=== PATIENT | female | born 1940 | race Caucasian/White ===

== ENCOUNTER 2023-04-18 22:08 | Observation (INO) | payer MEDICARE ==
[2023-04-19] MEDS ORDERED: Acetaminophen 650 MG Suppository PR PRN (00:45)
[2023-04-19] MEDS ORDERED: Ondansetron PF 4 MG/2 ML Vial IVP PRN (00:45)
[2023-04-19] MEDS ORDERED: Acetaminophen 325 MG TAB PO PRN (00:45)
[2023-04-19] MEDS ORDERED: Ondansetron ODT 4 MG TAB PO PRN (00:45)
[2023-04-19] MEDS ORDERED: Glucagon 1 MG/ML KIT IM PRN (03:01)
[2023-04-19] MEDS ORDERED: Dextrose 50% Abboject 50 ML SYRINGE SLOW IVP PRN (03:01)
[2023-04-19] MEDS ORDERED: HumaLOG 300 UNITS/3 ML VIAL SC PRN ×2 (03:01)
[2023-04-19] MEDS ORDERED: Dextrose 5% in Water 1,000 ML IV PRN (03:01)
[2023-04-19] MEDS: Vancomycin (BATCH) 1.5 GM in Premix 1 BAG IVPB SCH (03:07)
[2023-04-19 06:10] VITALS: BMI 21.9
[2023-04-19 08:31] LABS: #Eosinphils 0.1 thou/uL (0.0-0.7); #Monocytes 0.3 thou/uL (0.11-0.59); #Neutrophils 4.3 thou/uL (1.40-6.50); %Basophils 0.4 % (0.0-1.0); %Eosinophils 2.1 % (0.0-10.0); %Lymphocytes 28.7 % (21.0-51.0); %Monocytes 4.7 % (0.0-10.0); Hemoglobin 10.3 g/dL (12.0-16.0); Mean Corpuscular HGB CONC 32.2 g/dL (32.0-36.0); Mean Corpuscular Hemoglobin 31.2 pg (27.0-31.0); Mean Platelet Volume 11.7 fL (7.4-10.4); RBC Distribution Width 13.6 % (11.5-14.5); White Blood Cell (WBC) Count 6.8 10x3/uL (4.8-10.8)
[2023-04-19 08:38] LABS: Platelet Count 113 10x3/uL (130-400)
[2023-04-19 08:46] LABS: Anion Gap 13 mmol/L (10-20); BUN (Urea Nitrogen) 13 mg/dL (9.8-20.1); Calc. Creatinine Clearance 57 mL/min (70-130); Calcium 8.7 mg/dL (7.8-10.44); Carbon Dioxide 23 mmol/L (23-31); Cardiac Risk 3.3 (Less than 4.5); Chloride 108 mmol/L (98-107); Cholesterol 114 mg/dl (< 200 Desired); Estimated GFR 78; Glucose 96 mg/dL (83-110); HDL Cholesterol 35 mg/dL (>60 Neg Risk); LDL Cholesterol, Calculated 36 mg/dL; Potassium 4.1 mmol/L (3.5-5.1); Sodium 140 mmol/L (136-145); Triglycerides 215 mg/dL (Less than 150)
[2023-04-19] MEDS ORDERED: Vancomycin (BATCH) 1.25 GM in Premix 1 BAG IVPB SCH (09:00)
[2023-04-19 09:01] LABS: Hemoglobin A1c 5.5 % (4.0-6.0)
[2023-04-19] MEDS: Sodium Chloride 0.9% 1,000 ML IV SCH (10:21)
[2023-04-19] MEDS: HYDROcodone/Acetaminophen 10/325 mg Tablet PO PRN (18:45)
[2023-04-19] MEDS: Cyanocobalamin (Vitamin B-12) 1,000 MCG TAB PO SCH (20:52)
[2023-04-19] MEDS: Atorvastatin Calcium 40 MG TAB PO SCH (20:52)
[2023-04-19] MEDS: rOPINIRole HCl 2 MG TAB PO SCH (20:52)
[2023-04-19] MEDS: Venlafaxine HCl XR 150 MG CAP PO SCH (20:52)
[2023-04-20] MEDS: Levothyroxine Sodium 75 MCG TAB PO SCH (05:42)
[2023-04-20 08:57] LABS: Anion Gap 9 mmol/L (10-20); BUN (Urea Nitrogen) 9 mg/dL (9.8-20.1); Calc. Creatinine Clearance 62 mL/min (70-130); Carbon Dioxide 27 mmol/L (23-31); Chloride 108 mmol/L (98-107); Estimated GFR 86; Glucose 84 mg/dL (83-110); Magnesium 1.5 mg/dL (1.6-2.6); Phosphorus 3.9 mg/dL (2.3-4.7); Potassium 4.1 mmol/L (3.5-5.1); Sodium 140 mmol/L (136-145)
[2023-04-20] MEDS: Ergocalciferol 1.25 MG(50,000 UNITS) CAP PO SCH (12:08)
[2023-04-20] MEDS: Magnesium 2 GM/50 ML(in water) 2 GM in Premix 1 BAG IVPB SCH (12:08)
[2023-04-20 14:01] VITALS: BP 116/62; TEMP 98.2
== END 2023-04-20 15:32 | disposition home or self-care (01) ==
LOC: ERS 22:08 → ERHOLD 04-19 00:22 → 2SE 04-19 04:36
PROVIDERS: ADMIT Student in an Organized Health Care Education/Training Program; ATTEND Internal Medicine
DX: S06.5X0A Traumatic subdural hemorrhage without loss of consciousness, initial encounter (principal); S01.01XA Laceration without foreign body of scalp, initial encounter; I10 Essential (primary) hypertension; F03.90 Unspecified dementia, unspecified severity, without behavioral disturbance, psychotic disturbance, mood disturbance, and anxiety; E11.9 Type 2 diabetes mellitus without complications; E78.5 Hyperlipidemia, unspecified; E03.9 Hypothyroidism, unspecified; G62.9 Polyneuropathy, unspecified; G25.81 Restless legs syndrome; Z96.652 Presence of left artificial knee joint; Z98.49 Cataract extraction status, unspecified eye; Z90.710 Acquired absence of both cervix and uterus; Z90.49 Acquired absence of other specified parts of digestive tract; Z79.890 Hormone replacement therapy; Z79.899 Other long term (current) drug therapy; Z88.8 Allergy status to other drugs, medicaments and biological substances; Z88.5 Allergy status to narcotic agent; W01.198A Fall on same level from slipping, tripping and stumbling with subsequent striking against other object, initial encounter
CPT/HCPCS: 70450; 80048 ×2; 80061; 82306; 82962 ×2; 83036; 83735; 84100; 84443; 85025; 96374; 96375; 97116 ×2; 97530 ×2; 99285; G0378 ×3; J3370; 36415; 36416; J1815; J3475; J7050